=== PATIENT | male | born 2000 | race Caucasian/White ===

== ENCOUNTER → 2023-03-31 | Outpatient (CLI) | payer OTHER ==
[~2023-03-31] MED LIST: GASTROGRAFIN SOLUTION 30ML As Ordered ONE; ISOVUE-370 76% 100ML VIAL As Ordered ONE
== END ==
LOC: M RAD 09:29
PROVIDERS: ATTEND Emergency Medicine
DX: R19.00 Intra-abdominal and pelvic swelling, mass and lump, unspecified site (principal); R59.0 Localized enlarged lymph nodes
CPT/HCPCS: 71260; 74178; Q9963; Q9967

== ENCOUNTER → 2023-05-09 | Outpatient (CLI) | payer OTHER ==
[~2023-05-09] MED LIST changes: +BACT800T5 PO; -GASTROGRAFIN SOLUTION 30ML As Ordered ONE; -ISOVUE-370 76% 100ML VIAL As Ordered ONE
== END ==
LOC: M PLARAD 12:01
PROVIDERS: ATTEND Emergency Medicine
DX: R19.00 Intra-abdominal and pelvic swelling, mass and lump, unspecified site (principal)
CPT/HCPCS: 78815; 89320; A9552

== ENCOUNTER → 2023-05-09 | Outpatient (REF) | payer OTHER ==
[2023-05-09 13:32] LABS: SEMEN APPEARANCE OPAQUE (OPAQUE); SEMEN VISCOSITY LIQUID (LIQUID); SEMEN VOLUME 4.2 ML (2.0-5.0); SEMEN WBC <=1 M/ml (<=1 M/ml); SEMEN pH 8.5 (7.0-8.0)
== END ==
LOC: M LAB REF 13:19
PROVIDERS: ATTEND Physician Assistant
DX: D40.11 Neoplasm of uncertain behavior of right testis (principal)